=== PATIENT | female | born 1995 | race Caucasian/White ===

== ENCOUNTER 2017-09-04 23:50 | Emergency (ER) | payer SELFPAY ==
[~2017-09-04] VITALS: Ht 154.9 cm; Wt 63.6 kg
[2017-09-05] MEDS ORDERED: LAMO25 PO
[2017-09-05] MEDS ORDERED: BUPR-93 PO
[2017-09-05] MEDS ORDERED: LEVO1TAB69 PO
[2017-09-05] MEDS ORDERED: PredniSONE 20 MG TABLET PO ONE (02:00)
[2017-09-05] MEDS ORDERED: DiphenhydrAMINE HCL 50 MG/ML VIAL IM ONE (02:00)
[2017-09-05 02:57] VITALS: BP 123/78
== END 2017-09-05 03:00 | disposition home or self-care (01) ==
LOC: EMS 23:52
DX: T42.6X5A Adverse effect of other antiepileptic and sedative-hypnotic drugs, initial encounter (principal); Z88.0 Allergy status to penicillin; Y92.89 Other specified places as the place of occurrence of the external cause
CPT/HCPCS: 81025; 96372; 99283; J1200; J7512